=== PATIENT | female | born 1955 | race Caucasian/White ===

== ENCOUNTER 2017-02-27 08:34 | Outpatient (CLI) | payer OTHER ==
--- NOTE | 2017-02-27 12:35 | NM ---
HIDA SCAN: Date: 02/27/17 INDICATION: Epigastric abdominal pain and weight loss. RADIOPHARMACEUTICAL: 5.1 mCi technetium-99m mebrofenin IV. FINDINGS: The gallbladder is seen to fill at approximately the 24 minute srinivasa. Gallbladder ejection fraction i s 58% after oral administration of 8 oz of Ensure. IMPRESSION: Normal HIDA scan. POS: [facility]
== END 2017-02-27 08:35 | disposition home or self-care (01) ==
LOC: NM 08:34
PROVIDERS: ATTEND Internal Medicine Gastroenterology
DX: R10.13 Epigastric pain (principal); R63.4 Abnormal weight loss
CPT/HCPCS: 78227; A9537

== ENCOUNTER 2017-04-16 08:57 | Outpatient (CLI) | payer OTHER ==
--- NOTE | 2017-04-16 11:08 | CT ---
CT ANGIOGRAM OF THE ABDOMEN WITH CONTRAST: Date: 04/16/17 HISTORY: Abdominal pain. Weight loss. COMPARISON: CT abdomen and pelvis dated 01/15/17. FINDINGS: The lung bases are clear. No pericardial effusion. The liver, spleen, and gallbladder are unremarkable. Focal ectasia of infrarenal abdominal aorta giovani uring up to 2.3 cm. There is ectasia of the bilateral common iliac artery measuring 1.4 cm and left m easuring 1.3 cm. No aneurysmal dilatation. No dilated loops of large or small bowel. No hydronephrosis. Submucosal edema of gastric antrum has improved. IMPRESSION: 1. Mild interval improvement of submucosal edema of gastric antrum. 2. Similar appearance of the aorta and iliac vessels. 3. No acute inflammatory process in abdomen or pelvis. 4. No aortic dissection. 5. Normal variant common trunk, celiac trunk, and superior mesenteric artery. 6. 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 POS: [facility]
[2017-04-16] MEDS ORDERED: Iopamidol 370 76% 100 ML VIAL ONE (12:21)
== END 2017-04-16 08:58 | disposition home or self-care (01) ==
LOC: CT 08:57
PROVIDERS: ATTEND Internal Medicine Gastroenterology
DX: R10.13 Epigastric pain (principal); R63.4 Abnormal weight loss; K31.89 Other diseases of stomach and duodenum; I72.2 Aneurysm of renal artery
CPT/HCPCS: 74174

== ENCOUNTER 2018-05-13 17:43 | Emergency (ER) | payer OTHER ==
--- NOTE | 2018-05-13 18:58 | RAD ---
RADIOGRAPH LEFT FOREARM TWO VIEWS: 05/13/18 at 6:09 p.m. HISTORY: 63-year-old female status post acute traumatic injury to forearm due to fall. FINDINGS: Distal radial displaced acute fracture. Mildly displaced distal ulnar metaphyseal fracture. The ulnar and radial diaphyses are intact. IMPRESSION: 1. Acute, traumatic, significantly displaced Colles' fracture of distal radial metaphysis. 2. Acute, traumatic, mildly displaced fracture of distal ulnar metaphysis. POS: [facility]
--- NOTE | 2018-05-13 19:36 | RAD ---
RADIOGRAPH LEFT WRIST THREE VIEWS: 05/13/18 at 6:08 p.m. HISTORY: 63-year-old female status post acute traumatic injury to the left wrist due to fall. FINDINGS: There is fracture of the distal radial metaphysis, with significant dorsal angulation and approximate ly half bone width dorsal displacement, of the distal fragment (including the entire distal radial ep iphysis along with the articulating carpal bones). There is overlap of fracture fragments resulting i n foreshortening. There is mild deformity of the distal ulnar metaphysis which is also consistent wit h mildly displaced fracture. IMPRESSION: 1. Acute, traumatic, significantly displaced, Colles' fracture of the distal radial metaphysis. 2. Acute, mildly displaced fracture of the distal ulnar metaphysis. POS: [facility]
[2018-05-13] MEDS ORDERED: Morphine 4 MG/ML VIAL ONE (20:24)
[2018-05-13] MEDS ORDERED: KETAMINE 100 MG/ML (5ML VIAL) ONE ×2 (20:24→22:13)
--- NOTE | 2018-05-13 23:27 | RAD ---
RADIOGRAPH LEFT FOREARM TWO VIEWS: 05/13/18 at 10:46 p.m. HISTORY: 63-year-old female with distal radial and ulnar fractures status post reduction. COMPARISON: 05/13/18 at 6:09 p.m. FINDINGS: There has been interval improvement in the alignment of the distal radial metaphyseal fracture, curre ntly with approximately 20% bone width dorsal displacement of the distal fragment, and interval resol ution of the angulation. Mildly displaced fracture of distal ulnar metaphysis is unchanged. IMPRESSION: Interval improvement in alignment after reduction of the distal radial metaphyseal Colles' fracture. POS: [facility]
== END 2018-05-13 23:10 | disposition home or self-care (01) ==
LOC: ERS 17:43
DX: S52.532A Colles' fracture of left radius, initial encounter for closed fracture (principal); S52.602A Unspecified fracture of lower end of left ulna, initial encounter for closed fracture; E78.5 Hyperlipidemia, unspecified; I10 Essential (primary) hypertension; F41.9 Anxiety disorder, unspecified; F17.210 Nicotine dependence, cigarettes, uncomplicated; Z79.899 Other long term (current) drug therapy; V00.211A Fall from ice-skates, initial encounter; Y93.21 Activity, ice skating
CPT/HCPCS: 25605; 96374; 99152; J2270

== ENCOUNTER 2018-05-19 11:15 | Day surgery (SDC) | payer OTHER ==
[2018-05-19] MEDS ORDERED: CEFAZOLIN 2 GM/50 ML BAG ONE (12:13)
[2018-05-19] MEDS ORDERED: Fentanyl 100 MCG/2 ML VIAL ONE ×3 (12:29→14:21)
[2018-05-19] MEDS ORDERED: HYDROmorphone 2 MG/ML VIAL ONE (13:02)
[2018-05-19] MEDS ORDERED: Bupivacaine PF 0.5% 30 ML VIAL ONE (13:06)
[2018-05-19] MEDS ORDERED: PROPOFOL 200 MG/20 ML VIAL ONE (13:14)
[2018-05-19] MEDS ORDERED: Dexamethasone 20 MG/5 ML VIAL ONE (13:14)
[2018-05-19] MEDS ORDERED: Metoclopramide HCl 10 MG/2 ML VIAL ONE (13:14)
[2018-05-19] MEDS ORDERED: Ondansetron PF 4 MG/2 ML Vial ONE (13:14)
[2018-05-19] MEDS ORDERED: Lidocaine 1% PF 5 ML VIAL ONE (13:14)
[2018-05-19] MEDS ORDERED: Ketorolac Tromethamine 30 MG/ML VIAL ONE (13:14)
[2018-05-19] MEDS ORDERED: diphenhydrAMINE 50 MG/ML VIAL ONE (13:14)
--- NOTE | 2018-05-19 14:49 | RAD ---
RADIOGRAPH LEFT WRIST 2 VIEWS: ATTENTION MARYSOL IN BILLING: This is a 2 view study, not 3 view. Date: 05/19/18 Time: 1419 hours HISTORY: 63-year-old female with left wrist acute, traumatic, displaced fracture. COMPARISON: 05/13/18. FINDINGS: Two small field of view fluoroscopic spot images obtained with C-arm in the OR. The distal radial met aphyseal and epiphyseal fracture has been reduced. Alignment is nearly anatomical. There are new vola r metallic plate and screws from the distal metadiaphysis to the distal epiphysis. The mildly displac ed distal ulnar acute fracture does not have any hardware. IMPRESSION: 1. Very recently status post open reduction and internal fixation of the comminuted, displaced, trau matic, closed, distal radial metaphyseal and epiphyseal fracture. 2. Acute, traumatic, displaced distal ulnar fracture. POS: [facility]
--- NOTE | 2018-05-20 13:48 | OP ---
DATE OF PROCEDURE: 05/19/2018 PREOPERATIVE DIAGNOSIS: Left distal radius fracture with ulnar neck fracture, minimally displaced. POSTOPERATIVE DIAGNOSIS: Left distal radius fracture with ulnar neck fracture, minimally displaced. PROCEDURE PERFORMED: 1. Open reduction and internal fixation of left distal radius. 2. Closed treatment of left distal ulna. ANESTHESIA: General. TOURNIQUET TIME: 31 minutes at 250 mmHg. IMPLANTS: Synthes system was used with a 6 head hole, 3 shaft hole, 2.4 mm variable angle LCP 2-column volar distal radius plate and a combination of 2.4-mm locking screws and 2.7-mm cortical screws. COMPLICATIONS: None. DRAINS: None. SPECIMENS: None. OUTCOME: Near-anatomic alignment. INDICATIONS: The patient is a 63-year-old lady, status post fall on outstretched left hand, sustaining a comminuted distal radius fracture with dorsal angulation and dorsal comminution. After discussion with the patient including risks and benefits, we decided to proceed with open reduction and internal fixation of the distal radius to restore length, correct the angular deformity. Informed consent has been obtained. I believe, all questions answered. DESCRIPTION OF PROCEDURE: The patient was brought to the operating room and a time-out was performed followed by induction of general anesthesia. Next, the patient was positioned supine on the OR table and a sterile prep and drape was performed on the left upper extremity. The limb was then exsanguinated with Esmarch bandage, tourniquet inflated to 250 mmHg. Next, a linear incision was made exploiting the interval between the flexor carpi radialis and the brachioradialis. Dissection was carried down bluntly identifying the neurovascular bundle and sweeping it laterally with the brachioradialis. Next, the pronator quadratus was released off the radial border of the distal radius and reflected to the midline, gaining access to the fracture. The fracture was reduced open and found to be grossly unstable. Once reduced, a volar plate was applied and then a 2.7-mm screw was placed in the oblong hole to allow for further adjustment of the plate as necessary. Once affixed to the bone, AP and lateral C-arm images were obtained that showed acceptable positioning on the bone. This was then followed by insertion of four 2.4 mm locking screws through the distal horizontal limb of the plate. This resulted in excellent stabilization of the distal radial fragment. Two additional 2.7 mm cortical screws were then placed in the vertical limb of the plate proximal to the fracture. At the completion of this, final AP and lateral C-arm images were obtained that showed muslim of radial inclination, radial length and volar tilt. The wound was then irrigated with normal saline and then closed in layers with 2-0 Vicryl subcutaneously and then noemy for the final skin closure. The fracture was then injected from dorsal with 10 mL of 0.5% Marcaine to provide postoperative pain relief. At the completion of wound closure, a Xeroform gauze, Webril, and fiberglass sugar-tong splint was applied to the arm. Tourniquet was let down, and then the patient was transferred to recovery room in stable condition. There were no complications. The patient tolerated the procedure well. Job ID: [id number]
== END 2018-05-19 16:10 | disposition home or self-care (01) ==
LOC: SDC 11:15
PROVIDERS: ATTEND Orthopaedic Surgery
PROC: 0PSJ04Z Reposition Left Radius with Internal Fixation Device, Open Approach (ICD-10-PCS; principal; 2018-05-19)
DX: S52.502A Unspecified fracture of the lower end of left radius, initial encounter for closed fracture (principal); S52.602A Unspecified fracture of lower end of left ulna, initial encounter for closed fracture; W19.XXXA Unspecified fall, initial encounter
CPT/HCPCS: 76000; C1713; J0131; J1100; J1170; J1200; J1885; J2001; J2405; J2704; J2765; J3010; S0020

== ENCOUNTER 2020-01-20 08:20 | Outpatient (CLI) | payer OTHER ==
--- NOTE | 2020-01-20 08:52 | ULT ---
Ultrasound of the abdominal aorta INDICATION: Screening evaluation for abdominal aortic aneurysm FINDINGS: Proximal abdominal aorta: Patent.. AP diameter is 2.62cm. Mediolateral diameter is 2.3 cm. Mid abdominal aorta: Patent.. AP diameter of is 1.9cm. Mediolateral diameter is 1.7 cm. Distal abdominal aorta: Patent. AP diameter is 1.9 cm. Mediolateral diameters 1.8 cm. Left common iliac artery: Patent. AP diameter is 1.1cm. Right common iliac artery: Patent. AP diameter is 1.0 cm. IMPRESSION: No aneurysmal dilation of the abdominal aorta.
--- NOTE | 2020-01-20 10:24 | MMO ---
Bilateral MAMMO Bilat Screen [facility]. CLINICAL HISTORY: Patient is 64 years old and is seen for screening. The patient has no family history of breast cancer. The patient has no personal history of cancer. VIEWS: The views performed were: bilateral craniocaudal with tomosynthesis; bilateral mediolateral oblique with tomosynthesis; and right exaggerated craniocaudal. FILMS COMPARED: The present examination has been compared to prior imaging studies performed at [facility] on 03/13/2010, 01/31/2011 and 12/31/2016. This study has been interpreted with the assistance of computer-aided detection. MAMMOGRAM FINDINGS: There are scattered fibroglandular densities. There are no suspicious masses, suspicious calcifications, or new areas of architectural distortion. IMPRESSION: THERE IS NO MAMMOGRAPHIC EVIDENCE OF MALIGNANCY. A ROUTINE FOLLOW-UP MAMMOGRAM IN 1 YEAR IS RECOMMENDED. THE RESULTS OF THIS EXAM WERE SENT TO THE PATIENT. ACR BI-RADS Category 1 - Negative MAMMOGRAPHY NOTE: 1. A negative mammogram report should not delay a biopsy if a dominant of clinically suspicious mass is present. 2. Approximately 10% to 15% of breast cancers are not detected by mammography. 3. Adenosis and dense breasts may obscure an underlying neoplasm. Reported by: SENAIT MONTELONGO MD Electonically Signed: [id number]
== END 2020-01-20 08:21 | disposition home or self-care (01) ==
LOC: BICMAMMO 08:20
PROVIDERS: ATTEND Family Medicine
DX: Z12.31 Encounter for screening mammogram for malignant neoplasm of breast (principal); Z13.6 Encounter for screening for cardiovascular disorders
CPT/HCPCS: 76775; 77063; 77067

== ENCOUNTER 2021-01-23 08:26 | Outpatient (CLI) | payer MEDICARE, BC | END 2021-01-23 08:27 | disposition home or self-care (01) | LOC: BICMAMMO 08:26 | PROVIDERS: ATTEND Family Medicine | DX: Z12.31 Encounter for screening mammogram for malignant neoplasm of breast (principal); Z13.820 Encounter for screening for osteoporosis; M81.0 Age-related osteoporosis without current pathological fracture; Z78.0 Asymptomatic menopausal state | CPT/HCPCS: 77063; 77067; 77080 ==

== ENCOUNTER 2021-01-23 09:08 | Outpatient (CLI) | payer MEDICARE, BC | END 2021-01-23 09:09 | disposition home or self-care (01) | LOC: BICCT 09:08 | PROVIDERS: ATTEND Family Medicine | DX: Z12.2 Encounter for screening for malignant neoplasm of respiratory organs (principal); Z87.891 Personal history of nicotine dependence | CPT/HCPCS: 71271 ==

== ENCOUNTER 2022-12-16 18:00 | Outpatient (CLI) | payer MEDICARE, BC | END 2022-12-16 18:01 | disposition home or self-care (01) | LOC: SLEEPLAB 18:00 | PROVIDERS: ATTEND Family Medicine | DX: G47.33 Obstructive sleep apnea (adult) (pediatric) (principal); R53.83 Other fatigue | CPT/HCPCS: 95800 ==

== ENCOUNTER 2023-02-16 17:00 | Outpatient (CLI) | payer BC, MEDICARE | END 2023-02-16 17:01 | disposition home or self-care (01) | LOC: SLEEPLAB 17:00 | PROVIDERS: ATTEND Family Medicine | DX: G47.33 Obstructive sleep apnea (adult) (pediatric) (principal); G47.61 Periodic limb movement disorder; R53.83 Other fatigue | CPT/HCPCS: 95810 ==

== ENCOUNTER 2023-03-17 09:05 | Outpatient (CLI) | payer BC, MEDICARE | END 2023-03-17 09:06 | disposition home or self-care (01) | LOC: RAD 09:05 | PROVIDERS: ATTEND Internal Medicine | DX: R06.00 Dyspnea, unspecified (principal) | CPT/HCPCS: 71046 ==

== ENCOUNTER 2024-01-15 16:33 | Outpatient (CLI) | payer MEDICARE | END 2024-01-15 16:34 | disposition home or self-care (01) | LOC: CT 16:33 | PROVIDERS: ATTEND Family Medicine | DX: S09.93XA Unspecified injury of face, initial encounter (principal); M79.89 Other specified soft tissue disorders; S06.32AA Contusion and laceration of left cerebrum with loss of consciousness status unknown, initial encounter | CPT/HCPCS: 70486 ==

== ENCOUNTER 2024-01-15 17:14 | Emergency (ER) | payer MEDICARE, OTHER ==
[2024-01-15 18:02] LABS: #Basophils 0.05 10x3/uL (0.0-0.2); %Basophils 0.7 % (0.0-1.0); %Eosinophils 3.4 % (0.0-10.0); %Lymphocytes 41.8 % (21.0-51.0); %Monocytes 11.6 % (0.0-10.0); %Neutrophils 42.2 % (42.0-75.0); Hematocrit 39.4 % (36.0-47.0); Hemoglobin 13.4 g/dL (12.0-16.0); Mean Corpuscular Hemoglobin 31.6 pg (27.0-31.0); Mean Corpuscular Volume 92.9 fL (78.0-98.0); Mean Platelet Volume 10.6 fL (7.4-10.4); Platelet Count 208 10x3/uL (130-400); RBC Distribution Width 14.2 % (11.5-14.5); Red Blood Cell (RBC) Count 4.24 mill/uL (4.20-5.40)
[2024-01-15 18:14] LABS: INR-International Normal Ratio 0.9; Prothrombin Time 12.6 sec (12.0-14.7)
[2024-01-15 18:15] LABS: PTT 27.2 sec (22.9-36.1)
[2024-01-15 18:27] LABS: ALT (SGPT) 14 U/L (8-55); AST (SGOT) 23 U/L (5-34); Albumin 4.2 g/dL (3.4-4.8); Alkaline Phosphatase 73 U/L (40-110); Anion Gap 15 mmol/L (10-20); BUN (Urea Nitrogen) 13 mg/dL (9.8-20.1); Bilirubin, Total 0.5 mg/dL (0.2-1.2); Calc. Creatinine Clearance 0 mL/min (70-130); Calcium 9.1 mg/dL (7.8-10.44); Carbon Dioxide 24 mmol/L (23-31); Chloride 107 mmol/L (98-107); Estimated GFR 85; Globulin 3.1 g/dL (2.4-3.5); Glucose 90 mg/dL (80-115); Potassium 3.5 mmol/L (3.5-5.1); Protein, Total 7.3 g/dL (5.8-8.1); Sodium 142 mmol/L (136-145)
== END 2024-01-15 19:15 | disposition home or self-care (01) ==
LOC: ERS 17:14
DX: S06.5X0A Traumatic subdural hemorrhage without loss of consciousness, initial encounter (principal); I10 Essential (primary) hypertension; W22.8XXA Striking against or struck by other objects, initial encounter; Z87.891 Personal history of nicotine dependence; S09.93XA Unspecified injury of face, initial encounter; M79.89 Other specified soft tissue disorders; S06.32AA Contusion and laceration of left cerebrum with loss of consciousness status unknown, initial encounter
CPT/HCPCS: 36415; 70450; 70486; 72125; 80053; 85025; 85610; 85730; 86850; 86900; 86901